=== PATIENT | female | born 1985 | race Caucasian/White ===

== ENCOUNTER 2017-08-20 13:59 | Outpatient (CLI) | payer OTHER ==
[~2017-08-20] VITALS: Ht 157.5 cm; Wt 86.6 kg
[~2017-08-20 13:59] MED LIST: HYDROCODON-ACE1 EAC7 PO; IBUPROFEN800 MG PO; PRENATAL TABLE1 EAC3 PO
[2017-08-20 15:23] VITALS: BP 123/72
== END 2017-08-20 16:30 | disposition home or self-care (01) ==
LOC: LDRP-OP 13:59 → 2WEST 14:00
DX: O47.1 False labor at or after 37 completed weeks of gestation (principal); Z3A.38 38 weeks gestation of pregnancy
CPT/HCPCS: 59025; G0378

== ENCOUNTER 2017-08-22 04:11 | Inpatient (IN) | payer OTHER ==
[~2017-08-22] VITALS: Ht 157.5 cm; Wt 86.8 kg
[2017-08-22] VITALS (7 sets, daily range): BP systolic 102–131; BP diastolic 59–86
[2017-08-22] MEDS ORDERED: PERCOCET 5/31 TABLET PO (05:54)
[2017-08-22] MEDS ORDERED: MOTRIN800 MG PO (05:54)
[2017-08-22 05:55] LABS: AMPHETAMINE NEGATIVE (500 ng/mL); BARBITURATES NEGATIVE (200 ng/mL); BENZODIAZEPINES NEGATIVE (150 ng/mL); BUPRENORPHINE NEGATIVE (10 ng/mL); COCAINE NEGATIVE (150 ng/mL); METHADONE NEGATIVE (200 ng/mL); METHAMPHETAMINE NEGATIVE (500 ng/mL); OPIATES (MORPHINE) NEGATIVE (100 ng/mL); OXYCODONE NEGATIVE (100 ng/mL); PHENCYCLIDINE NEGATIVE (25 ng/mL); PROPOXYPHENE NEGATIVE (300 ng/mL); THC CANNABINOIDS NEGATIVE (50 ng/mL); TRICYCLIC ANTIDEPRESSANTS NEGATIVE (300 ng/mL)
[2017-08-22 06:05] LABS: BASOPHIL (%) 0.5 % (0-1); BASOPHIL COUNT 0.1 K/uL (0-0.1); EOSINOPHIL (%) 0.1 % (0-5); HEMATOCRIT 34.8 % (36.0-46.0); HEMOGLOBIN 11.2 G/DL (11.9-15.5); IMMATURE GRANULOCYTE (%) 3.9 % (0.0-0.7); LYMPHOCYTE (%) 20.5 % (15-42); LYMPHOCYTE COUNT 3.6 K/uL (1.0-2.8); MCH 27.4 PG (29.0-34.0); MCHC 32.2 G/DL (30.0-36.0); MCV 85.1 FL (83-99); MONOCYTE (%) 5.4 % (3-12); MONOCYTE COUNT 0.9 K/uL (0-0.8); NEUTROPHIL (%) 69.6 % (45-76); NEUTROPHIL COUNT 12.1 K/uL (1.8-6.4); PLATELET COUNT 187 K/uL (156-360); RBC DIS.WIDTH-CV 13.8 % (11.8-14.6); RBC DIS.WIDTH-SD 42.1 % (39-53); RED BLOOD COUNT 4.09 M/uL (3.80-5.20); WHITE BLOOD COUNT 17.4 K/uL (4.1-10.2)
[2017-08-23 02:41] VITALS: BP 92/53
[2017-08-23 02:44] VITALS: BP 93/51
[2017-08-23 06:31] LABS: BASOPHIL (%) 0.3 % (0-1); EOSINOPHIL (%) 0.5 % (0-5); EOSINOPHIL COUNT 0.1 K/uL (0-0.3); HEMATOCRIT 26.4 % (36.0-46.0); IMMATURE GRANULOCYTE (%) 1.9 % (0.0-0.7); LYMPHOCYTE (%) 17.8 % (15-42); LYMPHOCYTE COUNT 2.2 K/uL (1.0-2.8); MCH 27.9 PG (29.0-34.0); MCHC 32.2 G/DL (30.0-36.0); MCV 86.6 FL (83-99); MONOCYTE (%) 6.6 % (3-12); MONOCYTE COUNT 0.8 K/uL (0-0.8); NEUTROPHIL (%) 72.9 % (45-76); NEUTROPHIL COUNT 8.9 K/uL (1.8-6.4); PLATELET COUNT 140 K/uL (156-360); RBC DIS.WIDTH-CV 14.2 % (11.8-14.6); RBC DIS.WIDTH-SD 43.1 % (39-53); WHITE BLOOD COUNT 12.2 K/uL (4.1-10.2)
[2017-08-23 06:32] LABS: HEMOGLOBIN 8.5 G/DL (11.9-15.5); RED BLOOD COUNT 3.05 M/uL (3.80-5.20)
[2017-08-23 07:31] VITALS: BP 117/59
[2017-08-23 10:51] VITALS: BP 104/55
[2017-08-23 15:14] VITALS: BP 112/59
== END 2017-08-24 14:29 | disposition home or self-care (01) | DRG 766 ==
LOC: LDRP-OP 04:11 → 2WEST 04:12 → LDRP-OP 09-26 16:47
PROVIDERS: Obstetrics & Gynecology
PROC: 10D00Z1 Extraction of Products of Conception, Low, Open Approach (ICD-10-PCS; principal; 2017-08-22)
DX: O75.82 Onset (spontaneous) of labor after 37 completed weeks of gestation but before 39 completed weeks gestation, with delivery by (planned) cesarean section (principal); O34.211 Maternal care for low transverse scar from previous cesarean delivery; O43.123 Velamentous insertion of umbilical cord, third trimester; O99.62 Diseases of the digestive system complicating childbirth; K21.9 Gastro-esophageal reflux disease without esophagitis; Z79.82 Long term (current) use of aspirin; Z3A.38 38 weeks gestation of pregnancy; Z37.0 Single live birth
CPT/HCPCS: 59025; 85025; 86850; 86900; 86901; G0378; J0690; J2274; J2405; J2765; J7120